=== PATIENT | male | born 1955 | race Caucasian/White ===

== ENCOUNTER 2022-01-25 08:19 | Emergency (ER) | payer MEDICARE ==
[2022-01-25] MEDS ORDERED: Acetaminophen/HYDROcodone 325-5 MG Tab PO ONE (08:41)
== END 2022-01-25 11:24 | disposition home or self-care (01) ==
LOC: VM.ED 08:19
DX: S82.402A Unspecified fracture of shaft of left fibula, initial encounter for closed fracture (principal); Z77.22 Contact with and (suspected) exposure to environmental tobacco smoke (acute) (chronic); W31.89XA Contact with other specified machinery, initial encounter
CPT/HCPCS: 73590; 73610; 73700; 99284; A9270